=== PATIENT | male | born 1975 | race Caucasian/White ===

== ENCOUNTER 2024-01-07 09:29 | Observation (INO) ==
--- NOTE | 2024-01-07 09:51 | Emergency Department Note ---
History of Present Illness General Chief complaint: Leg Injury/Pain Stated complaint: RIGHT THIGH/LEG PAIN Time Seen by Provider: 01/07/24 09:31 History of Present Illness Maximum Pain Intensity: 7 This is a 48-year-old male with a history of lymphoma and leukemia currently on therapy that presents to the emergency department via private vehicle with complaints of "right leg pain". Patient states that this past Wednesday began with right medial proximal thigh pain and that has progressed now into the right leg. He rates his current pain is a 6/10. He did take Tylenol around 2:30 AM. Patient notes chronic shortness of breath, nothing new. He denies any fevers, chills, nausea, vomiting or chest pain. No history of blood clot. No wounds. Patient does follow locally here with Dr. Bradley at the [facility]. Home Medications Medication Instructions Recorded Confirmed Type lidocaine 5 % topical patch 1 patch topical DAILY #15 ea 08/12/23 01/07/24 Rx (Lidoderm) lisinopril 10 1 tab PO PM 08/12/23 01/07/24 History mg-hydrochlorothiazide 12.5 mg tablet acyclovir 400 mg tablet 400 mg PO BID 01/07/24 01/07/24 History albuterol sulfate 90 mcg/actuation 2 puff inhalation Q6H PRN sob or 01/07/24 01/07/24 History aerosol inhaler wheezing allopurinol 300 mg tablet 300 mg PO DAILY@1200 01/07/24 01/07/24 History cyclobenzaprine 10 mg tablet 10 mg PO BID PRN Muscle Spasm 01/07/24 01/07/24 History famotidine 20 mg tablet 20 mg PO HS 01/07/24 01/07/24 History hydroxyzine pamoate 25 mg capsule 25 - 50 mg PO DAILY PRN Anxiety 01/07/24 01/07/24 History levofloxacin 500 mg tablet 500 mg PO DAILY 01/07/24 01/07/24 History sofosbuvir 400 mg-velpatasvir 100 1 tab PO DAILY 01/07/24 01/07/24 History mg tablet (Epclusa) Allergies Allergy/AdvReac Type Severity Reaction Status Date / Time petrolatum,white Allergy Unknown Swelling Verified 09/30/23 08:09 [From Vaseline] of Lip/Tongue/Throat Past Med/Surg History Problem List (Updated 01/07/24 @ 15:25 by Philip Jasmine PA-C) Acute pain of right lower extremity (Acute) NALLELY (acute kidney injury) (Acute) Acute kidney injury superimposed on chronic kidney disease Right leg DVT (Acute) HTN (hypertension) Hepatitis C recent diagnosis, to start treatment 09/28/23; [facility] CLL (chronic lymphocytic leukemia) following w/ Dr Bradley Lymphadenopathy Lumbar pain Headache (Acute) Lumbar disc herniation with radiculopathy (Chronic) L3-4 left, extraforaminal- will receive steroid injection 09/24/23 @ [facility] Medical History (Updated 01/07/24 @ 15:25 by Philip Jasmine PA-C) Nephrolithiasis hx Surgical History S/P lymph node biopsy (10/01/23) Left axillary lymph nodes x 2.Dr. Borden Hx of cystoscopy w/ ureteral stent placement H/O lithotripsy Family History Grandfather Colorectal cancer Other Lung cancer Social History Smoking Status: Current every day smoker Tobacco Type: Cigarettes packs per day: 0.5; Cigarettes Per Day: 12; Second Hand Exposure: No; Do You Dip or Chew Tobacco: No; Tobacco Cessation Education Requested by Patient: No Hx Alcohol Use: No Hx Substance Use: No Preferred Language: Tamazight Communication Ability: Effective Electronic Tech Required: No Beliefs That Will Affect Care: None marital status: Current Living Situation: Spouse current occupation: [employer] How many Children do You have: 1 Other Information That Helps Us Care for You: No Feels Safe at Home: Yes Safety Concerns: Feels Safe At This Time during the past year weight has: remained stable Assistive Devices: None Review of Systems A total of 10 systems reviewed and were otherwise negative Physical Exam Vital Signs Vital Signs - 24 hr 01/07/24 09:30 01/07/24 09:48 01/07/24 10:30 Temperature 37.5 C Temperature Source Oral Pulse Rate 96 H 96 H Pulse Rate [Right Finger] 94 H Pulse Rate from SpO2 Sensor Pulse Rhythm Regular Regular Pulse Rhythm [Right Finger] Regular Pulse Strength Normal Pulse Strength [Right Finger] Normal Respiratory Rate 20 18 20 Respiratory Effort / Characteristics Non-Labored Spontaneous Non-Labored Spontaneous Respiratory Depth Normal Normal Respiratory Pattern Regular Regular Blood Pressure 107/69 Blood Pressure [Right Arm] 110/69 Blood Pressure Mean 81 Blood Pressure Mean [Right Arm] 82 Blood Pressure Position Sitting Blood Pressure Position [Right Arm] Sitting Pulse Oximetry 97 97 97 Oxygen Delivery Method Room Air Room Air Room Air Sepsis Recent Fever Within 48 Hours No Sepsis New/Unexplained Change in Mental Status No Sepsis Action Taken by Nursing No Action Required 01/07/24 11:42 01/07/24 11:43 01/07/24 12:15 Temperature Temperature Source Pulse Rate 85 84 89 Pulse Rate [Right Finger] Pulse Rate from SpO2 Sensor 85 89 Pulse Rhythm Pulse Rhythm [Right Finger] Pulse Strength Pulse Strength [Right Finger] Respiratory Rate 17 18 Respiratory Effort / Characteristics Respiratory Depth Respiratory Pattern Blood Pressure 91/63 L Blood Pressure [Right Arm] Blood Pressure Mean 72 Blood Pressure Mean [Right Arm] Blood Pressure Position Blood Pressure Position [Right Arm] Pulse Oximetry 95 97 Oxygen Delivery Method Sepsis Recent Fever Within 48 Hours Sepsis New/Unexplained Change in Mental Status Sepsis Action Taken by Nursing VITAL SIGNS - Vital signs and nursing notes were reviewed. Stable and afebrile. GENERAL -48-year-old male appearing his stated age who is in no acute distress. Communicates well with provider and answers questions appropriately. SKIN -there is a mild erythematous hue present overlying the entire right lower extremity most pronounced distal to the right knee. Small amount of petechial presents noted to the right anterior lateral pretibial soft tissues. No wounds. No fluctuance. No crepitus. HEAD - NC/AT. EYES - Sclera anicteric. LUNGS - CTA CARDIAC - RRR ABDOMEN - Abdominal contour normal without pulsations or visible masses. BS normoactive all four quadrants. No tenderness, palpable masses, hepatosplenomegaly, or ascites noted. EXTREMITIES - No clubbing or peripheral cyanosis. Skin as above. Right medial proximal thigh region tender to palpation. Right dorsalis pedis pulse and left as well as pedis pulse within normal limits and symmetric bilaterally. +5/5 strength noted in UE/LE bilaterally. NEUROLOGIC - Cranial nerves grossly intact. Sensory intact throughout the right lower extremity without deficit PSYCH -alert, oriented and pleasant on exam. Course Administered Medications Heparin Sodium/Dextrose (Heparin Sodium/Dextrose) 25,000 units in 500 mls @ 29 mls/hr IV .[id number] EDMAR; Protocol Stop: 02/06/24 11:29 Last Admin: 01/07/24 11:41 Dose: 1,450 units/hr, 29 mls/hr Documented By: THERESA Co-signed By: DANIELLE Sodium Chloride (Nss) 1,000 mls @ 80 mls/hr IV .[id number] [facility] Stop: 02/06/24 13:59 Last Admin: 01/07/24 15:01 Dose: 80 mls/hr Documented By: DEBRA Discontinued Medications Heparin Sodium (Porcine) (Heparin Sod (Porcine) 1000 Unit/Ml) 6,000 units IV NOW ONE Stop: 01/07/24 11:24 Last Admin: 01/07/24 11:41 Dose: 6,000 units Documented By: THERESA Co-signed By: DANIELLE Heparin Sodium/Dextrose (Heparin Iv Adult Wt-Based Standard W/ Initial Bolus Protocol) 1 each IV NOW STA; Protocol Stop: 01/07/24 11:09 Last Admin: 01/07/24 11:35 Dose: 1 each Documented By: THERESA Medical Decision Making Laboratory Data 01/07/24 10:00 01/07/24 10:00 Lab Results 01/07/24 01/07/24 Range/Units 10:00 12:44 WBC 14.18 H (4.8-10.8) K/ul RBC 5.62 (4.70-6.10) M/uL Hgb 15.9 (14.0-18.0) g/dl Hct 45.8 (42.0-52.0) % MCV 81.5 (80.0-100.0) fL MCH 28.3 (25.0-34.0) pg MCHC 34.7 (32.0-36.0) g/dL RDW Std Deviation 37.2 (36.4-46.3) fL RDW Coeff of Indra 12.7 (11.5-14.5) % Plt Count 181 (130-400) K/uL MPV 9.0 L (9.4-12.4) fL Immature Gran % (Auto) 1.2 % Neut % (Auto) 68.2 % Lymph % (Auto) 14.7 % [place] % (Auto) 14.0 % Eos % (Auto) 0.8 % Baso % (Auto) 1.1 % Neut # (Auto) 9.66 H (1.40-6.50) K/uL Lymph # (Auto) 2.09 (1.20-3.40) K/uL [place] # (Auto) 1.99 H (0.11-0.59) K/uL Eos # (Auto) 0.12 (0.00-0.50) K/uL Baso # (Auto) 0.15 (0.00-0.20) K/uL Immature Gran # (Auto) 0.17 (0.01-0.20) K/uL PT 10.2 (9.0-12.0) Seconds INR 0.9 (0.9-1.1) APTT 25 (21-31) Seconds PTT Ratio 0.9 Sodium 131 L (136-145) mmol/L Potassium 3.9 (3.5-5.1) mmol/L Chloride 99 (98-107) mmol/L Carbon Dioxide 22 (21-32) mmol/L Anion Gap 10 (3-11) BUN 44 H (6-23) mg/dl Creatinine 1.96 H (0.6-1.4) mg/dl Est Cr Clr Drug Dosing 52.8 ml/min Est GFR ( Amer) 45.8 ml/min Est GFR (Non-Af Amer) 39.6 ml/min BUN/Creatinine Ratio 22.4 H (10-20) Glucose 111 H (70-99(Fasting)) mg/dl Lactate 1.7 (0.4-2.0) mmol/L Calcium 9.3 (8.6-10.3) mg/dl Total Bilirubin 0.5 (0.2-1.0) mg/dl AST 12 L (13-39) U/L ALT 8 (7-52) U/L Alkaline Phosphatase 48 (34-104) U/L Total Creatine Kinase 43 (30-223) U/L Troponin I High Sens 3.9 (0-20) pg/ml Total Protein 7.2 (6.0-8.3) gm/dl Albumin 4.1 (3.4-5.0) gm/dl Globulin 3.1 (2.5-4.0) gm/dl Albumin/Globulin Ratio 1.3 (0.9-2) Procalcitonin 0.22 (0-0.5) ng/ml Imaging Data Radiologist's Impression: Venous Doppler Study 01/07/24 09:48 ULTRASOUND RIGHT LOWER EXTREMITY VENOUS CLINICAL HISTORY: Right leg pain and swelling. COMPARISON STUDY: No priors. TECHNIQUE: Real-time, grayscale, and color Doppler sonography of the deep veins of the right lower extremity was performed from the inguinal crease to the calf. Compression and augmentation were utilized. FINDINGS: There is extensive occlusive deep venous thrombosis seen throughout the right lower extremity, which extends from the common femoral vein through the popliteal vein. This extends into the calf with occlusive deep venous thrombosis seen in the posterior tibial and peroneal veins. The greater saphenous vein and the profunda femoris vein at the junction with the common femoral vein are clear. The anterior tibial vein is patent and normally compressible. Prominent right inguinal lymph nodes are likely reactive. IMPRESSION: Extensive occlusive right lower extremity deep venous thrombosis as detailed above. ACT 112: Negative or not required by law. Electronically signed by: Merrill Verdugo M.D. 01/07/2024 10:47 AM Pulmonary Perfusion Imaging 01/07/24 12:28 NM pul perfusion HISTORY: 48 years-old Male occlusive RLE DVT COMPARISON: Duplex venous Doppler study 01/07/2024, chest CT 11/18/2023, chest radiograph 01/07/2024. TECHNIQUE: Perfusion study was obtained following the intravenous administration of 5.6 mCi technetium 99 MAA FINDINGS: Chest radiograph of same day demonstrates mild right hemidiaphragmatic elevation without large pleural effusion or airspace consolidation. No large segmental perfusion defects. IMPRESSION: Low probability for pulmonary embolus. ACT 112: Negative or not required by law. The above report was generated using voice recognition software. It may contain grammatical, syntax or spelling errors. Electronically signed by: James Nath M.D. 01/07/2024 2:46 PM [facility] Narrative Patient was seen and evaluated as above in room A12. Review was performed of nursing notes and vital signs. I did review pertinent previous visits and patient history. After obtaining a thorough history and physical examination the above work up was performed. Patient presents to us today for evaluation of right leg pain. Patient well-appearing and nontoxic on examination. Right leg is edematous. Options of care were discussed with the patient. IV access was established. Labs were drawn. Leukocytosis 14.18. No anemia. Coags are normal. Sodium 131. Evidence of NALLELY with creatinine of 1.96. Hyperglycemia 111. Pro-Luis 0.22. Lactate within normal limits. CPK within normal range at 43. Ultrasound results as above. The patient unfortunately does have extensive occlusive right lower extremity DVT. Noting the patient's comorbidities and findings today I did discuss this with the on-call vascular surgeon as well as the patient's established oncologist as timestamped and detailed below. At this time we will proceed with inpatient management. I thoroughly reviewed benefit versus risk of heparinization with the patient. No contraindications seen at this time. At this time patient is in agreement with proceeding with the IV heparin. Case discussed with hospitalist service. Please refer to further documentation regarding his stay. The patient did have borderline low normal blood pressure at 91/63. He has been resting comfortably in examination bed. There is no hypoxia. No tachycardia. He does not feel dizzy or lightheaded. There is no chest pain. Consideration was made for a CTA of the chest however at this time we will hold off noting the patient's normal O2 saturation, NALLELY, and overall good clinical appearance. At 10:57 AM: I spoke with Dr. Rangel vascular surgery noting the patient's ultrasound findings as noted above which was the extensive occlusive right lower extremity DVT. Recommendation at this time was IV heparin. At 11:06 AM I then spoke to Dr. Bradley of oncology. At this time we agree with the heparin and then can transition to Eliquis. At 11:30 AM I also spoke with the hospitalist service and we will proceed with admission at this time. Case was discussed with the attending physician. In the evaluation and treatment of this patient the following differential diagnoses were entertained: Cellulitis, DVT, among others, cerulea dolens, PE, among others. Impression & Plan Right leg DVT, NALLELY (acute kidney injury), Acute pain of right lower extremity Discharge Plan Visit Data Chief Complaint: Leg Injury/Pain Stated Complaint: RIGHT THIGH/LEG PAIN ED Provider: Jose Buckner ED Midlevel Provider: Philip Jasmine Discharge Problem: Right leg DVT, NALLELY (acute kidney injury), Acute pain of right lower extremity Patient Disposition: Admitted As Inpatient Condition: Good Discharge Instructions Interventions: ED Discharge Assessment Last Done: 01/07/24 14:04
[2024-01-07 10:22] LABS: Basophils # (auto) 0.15 K/uL (0.00-0.20); Basophils % (auto) 1.1 %; Eosinophils # (auto) 0.12 K/uL (0.00-0.50); Eosinophils % (auto) 0.8 %; Hematocrit (blood only) 45.8 % (42.0-52.0); Hemoglobin 15.9 g/dl (14.0-18.0); Immature Granulocytes # (auto) 0.17 K/uL (0.01-0.20); Immature Granulocytes % (auto) 1.2 %; Lymphocytes # (auto) 2.09 K/uL (1.20-3.40); Lymphocytes % (auto) 14.7 %; Mean Corpuscular Hemoglobin 28.3 pg (25.0-34.0); Mean Corpuscular Hgb Conc 34.7 g/dL (32.0-36.0); Mean Corpuscular Volume 81.5 fL (80.0-100.0); Monocytes # (auto) 1.99 K/uL (0.11-0.59); Neutrophils # (auto) 9.66 K/uL (1.40-6.50); Neutrophils % (auto) 68.2 %; Platelet Count 181 K/uL (130-400); RDW Coefficient of Variation 12.7 % (11.5-14.5); RDW Standard Deviation 37.2 fL (36.4-46.3); Red Blood Count 5.62 M/uL (4.70-6.10); White Blood Count 14.18 K/ul (4.8-10.8)
[2024-01-07 10:39] LABS: Albumin Globulin Ratio 1.3 (0.9-2); Albumin Level 4.1 gm/dl (3.4-5.0); BUN Creatinine Ratio 22.4 (10-20); Bilirubin,Total 0.5 mg/dl (0.2-1.0); Calcium 9.3 mg/dl (8.6-10.3); Creatinine Clr Calc Pharmacy 52.8 ml/min; Est GFR (African American) 45.8 ml/min; Est GFR (Non-African American) 39.6 ml/min; Globulin 3.1 gm/dl (2.5-4.0); Potassium 3.9 mmol/L (3.5-5.1); Total Protein 7.2 gm/dl (6.0-8.3)
[2024-01-07 10:41] LABS: INR 0.9 (0.9-1.1); Partial Thromboplastin Ratio 0.9; Partial Thromboplastin Time 25 Seconds (21-31); Prothrombin Time 10.2 Seconds (9.0-12.0)
--- NOTE | 2024-01-07 10:49 | Ultrasound Report ---
ULTRASOUND RIGHT LOWER EXTREMITY VENOUS CLINICAL HISTORY: Right leg pain and swelling. COMPARISON STUDY: No priors. TECHNIQUE: Real-time, grayscale, and color Doppler sonography of the deep veins of the right lower ex tremity was performed from the inguinal crease to the calf. Compression and augmentation were utilize d. FINDINGS: There is extensive occlusive deep venous thrombosis seen throughout the right lower extremi ty, which extends from the common femoral vein through the popliteal vein. This extends into the calf with occlusive deep venous thrombosis seen in the posterior tibial and peroneal veins. The greater s aphenous vein and the profunda femoris vein at the junction with the common femoral vein are clear. T he anterior tibial vein is patent and normally compressible. Prominent right inguinal lymph nodes are likely reactive. IMPRESSION: Extensive occlusive right lower extremity deep venous thrombosis as detailed above. ACT 112: Negative or not required by law. Electronically signed by: Merrill Verdugo M.D. 01/07/2024 10:47 AM
[2024-01-07] MEDS ORDERED: HEPARIN SOD (PORCINE) 1000 UNIT/ML IV ONE (11:23)
[2024-01-07] MEDS: Heparin IV Adult Wt-Based Standard w/ INITIAL Bolus Protocol IV STA (11:35)
[2024-01-07] MEDS: HEPARIN SOD (PORCINE) 1000 UNIT/ML IV ONE (11:41)
[2024-01-07] MEDS: HEPARIN SODIUM/DEXTROSE 25,000 UNITS/500 ML BAG IV SCH (11:41)
--- NOTE | 2024-01-07 11:56 | History & Physical Report ---
Date of Service January 07, 2024 Assessment & Plan (1) Right leg DVT: Plan: This is a 48-year-old male with PMH of CLL following with Dr. Bradley on third cycle of chemo at [facility], hypertension, tobacco use, chronic hepatitis C and other medical problems listed below who presents with right lower extremity pain x 3 days. RLE venous doppler with extensive occlusive right lower extremity deep venous thrombosis as detailed above Distal pulses intact ED provider discussed with Dr. Rangel of vascular surgery, starting IV heparin to be transitioned to Eliquis on discharge No CP or SOB, VSS stable although BP lower end of normal at 91/63, asymptomatic appears to have lower baseline BP 2D echo, EKG, VQ scan ordered to evaluate for R heart strain Unable to obtain CTA chest now given NALLELY (2) Acute kidney injury superimposed on chronic kidney disease: Plan: Cr 1.96 (baseline Cr ~ 1.25) Hold lisinopril-hctz Continue gentle fluids Repeat BMP tomorrow (3) CLL (chronic lymphocytic leukemia): Plan: Following with Dr. Bradley of [facility], dx at the beginning of 2023. Has completed 3 cycles of chemo per patient Unable to view notes - will request from HIM Continue ppx antiviral and Levaquin (4) Hepatitis C: Plan: Continue Epclusa for hepatitis C (started on 12/07/2023 for 12-week course), following with hepatology at [place] (5) HTN (hypertension): Plan: BP on lower end of normal. Holding lisinopril-hctz for NALLELY as above DVT Ppx: IV heparin Code status: FULL PCP: Pérez Dispo: Admitted to PCU Patient seen in collaboration with Dr. Solomon. Please see addendum. I spent a total of 75 minutes coordinating, documenting, and providing care for this patient excluding time spent in the performance of separately billed services. History of Present Illness Chief Complaint: Right leg pain Primary Care Provider: Gonzales Ortez MD This is a 48-year-old male with PMH of CLL following with Dr. Bradley on third cycle of chemo at [facility], hypertension, history of migraines, tobacco use, chronic hepatitis C and other medical problems listed below who presents with right lower extremity pain x 3 days. Dull pain started 3 days and then progressed to worsened pain, swelling and rash on RLE overnight which prompted presentation to ED. Has been more painful with ambulation starting yesterday. No lightheadedness, headache, CP, palpitations or SOB. No F/C. No N/V, abd pain, dysuria, diarrhea or constipation. Was recently started on Epclusa for hepatitis C on 12/07/2023 for 12-week course, following with hepatology at [place]. Allergies Allergy/AdvReac Type Severity Reaction Status Date / Time petrolatum,white Allergy Unknown Swelling Verified 09/30/23 08:09 [From Vaseline] of Lip/Tongue/Throat Home Medications Medication Instructions Recorded Confirmed Type lidocaine 5 % topical patch 1 patch topical DAILY #15 ea 08/12/23 01/07/24 Rx (Lidoderm) lisinopril 10 1 tab PO PM 08/12/23 01/07/24 History mg-hydrochlorothiazide 12.5 mg tablet acyclovir 400 mg tablet 400 mg PO BID 01/07/24 01/07/24 History albuterol sulfate 90 mcg/actuation 2 puff inhalation Q6H PRN sob or 01/07/24 01/07/24 History aerosol inhaler wheezing allopurinol 300 mg tablet 300 mg PO DAILY@1200 01/07/24 01/07/24 History cyclobenzaprine 10 mg tablet 10 mg PO BID PRN Muscle Spasm 01/07/24 01/07/24 History famotidine 20 mg tablet 20 mg PO HS 01/07/24 01/07/24 History hydroxyzine pamoate 25 mg capsule 25 - 50 mg PO DAILY PRN Anxiety 01/07/24 01/07/24 History levofloxacin 500 mg tablet 500 mg PO DAILY 01/07/24 01/07/24 History sofosbuvir 400 mg-velpatasvir 100 1 tab PO DAILY 01/07/24 01/07/24 History mg tablet (Epclusa) Past Med/Surg History Problem List (Updated 01/07/24 @ 15:25 by Philip Jasmine PA-C) Acute pain of right lower extremity (Acute) NALLELY (acute kidney injury) (Acute) Acute kidney injury superimposed on chronic kidney disease Right leg DVT (Acute) HTN (hypertension) Hepatitis C recent diagnosis, to start treatment 09/28/23; [facility] CLL (chronic lymphocytic leukemia) following w/ Dr Bradley Lymphadenopathy Lumbar pain Headache (Acute) Lumbar disc herniation with radiculopathy (Chronic) L3-4 left, extraforaminal- will receive steroid injection 09/24/23 @ S Medical History (Updated 01/07/24 @ 15:25 by Philip Jasmine PA-C) Nephrolithiasis hx Surgical History S/P lymph node biopsy (10/01/23) Left axillary lymph nodes x 2.Dr. Borden Hx of cystoscopy w/ ureteral stent placement H/O lithotripsy Family History Grandfather Colorectal cancer Other Lung cancer Social History Smoking Status: Current every day smoker Tobacco Type: Cigarettes packs per day: 0.5; Cigarettes Per Day: 12; Second Hand Exposure: No; Do You Dip or Chew Tobacco: No; Tobacco Cessation Education Requested by Patient: No Hx Alcohol Use: No Hx Substance Use: No Preferred Language: Citizen Of [place] Communication Ability: Effective Hop Sorter Required: No Beliefs That Will Affect Care: None marital status: Current Living Situation: Spouse current occupation: [employer] How many Children do You have: 1 Other Information That Helps Us Care for You: No Feels Safe at Home: Yes Safety Concerns: Feels Safe At This Time during the past year weight has: remained stable Assistive Devices: None Review of Systems Review of Systems: At least ten systems reviewed and negative except as noted in the HPI. Physical Exam Physical Exam: General Appearance: WD/WN, vitals as above, NAD, sitting up in bed, pleasant, conversing easily Head: normocephalic, atraumatic Eyes: normal inspection, PERRL, conjunctivae normal, anicteric sclerae ENT: external ear and nose normal, oropharynx normal Neck: normal visual inspection, trachea midline, no thyromegaly Respiratory: normal respiratory effort, lungs clear to auscultation, no wheeze, rales, rhonchi. No accessory muscle use Cardiovascular: regular rate, rhythm, no murmur, normal peripheral pulses, no BLE edema. Vessels: no JVD Chest: normal inspection of chest Abdomen/GI: normal bowel sounds, soft, nontender, no hepatosplenomegaly Extremities/Musculoskeletal: RLE TTP of calf up to popliteal region, edema noted, erythema of RLE extending over knee, extremities motor strength 5/5, DP and PT pulses 2+ Neurologic: PERRL, EOMI, accommodation nl, no face palsy, no dysarthria, CN's II-XI intact bilaterally and moves all extremities Psychiatric: A+Ox3, euthymic affect Skin: normal color, warm/dry, +petechial rash noted on RLE up to groin Results & Data Results & Data Vital Signs (Past 12 Hours) Vital Signs Temp Pulse Pulse Resp BP BP Pulse Ox 01/07/24 11:43 84 01/07/24 10:30 94 H 20 110/69 97 01/07/24 09:48 96 H 18 97 01/07/24 09:30 37.5 C 96 H 20 107/69 97 O2 Del Method 01/07/24 11:43 01/07/24 10:30 Room Air 01/07/24 09:48 Room Air 01/07/24 09:30 Room Air Laboratory Results Short CBC 01/07/24 Range/Units 10:00 WBC 14.18 H (4.8-10.8) K/ul Hgb 15.9 (14.0-18.0) g/dl Hct 45.8 (42.0-52.0) % Plt Count 181 (130-400) K/uL BMP 01/07/24 10:00 Sodium 131 L Potassium 3.9 Chloride 99 Carbon Dioxide 22 BUN 44 H Creatinine 1.96 H Glucose 111 H Calcium 9.3 Cardiac Enzymes 01/07/24 Range/Units 10:00 Total Creatine Kinase 43 (30-223) U/L Liver Function 01/07/24 Range/Units 10:00 Total Bilirubin 0.5 (0.2-1.0) mg/dl AST 12 L (13-39) U/L ALT 8 (7-52) U/L Alkaline Phosphatase 48 (34-104) U/L Albumin 4.1 (3.4-5.0) gm/dl Diagnostic Findings Venous Doppler Study 01/07/24 09:48 ULTRASOUND RIGHT LOWER EXTREMITY VENOUS CLINICAL HISTORY: Right leg pain and swelling. COMPARISON STUDY: No priors. TECHNIQUE: Real-time, grayscale, and color Doppler sonography of the deep veins of the right lower extremity was performed from the inguinal crease to the calf. Compression and augmentation were utilized. FINDINGS: There is extensive occlusive deep venous thrombosis seen throughout the right lower extremity, which extends from the common femoral vein through the popliteal vein. This extends into the calf with occlusive deep venous thrombosis seen in the posterior tibial and peroneal veins. The greater saphenous vein and the profunda femoris vein at the junction with the common femoral vein are clear. The anterior tibial vein is patent and normally compressible. Prominent right inguinal lymph nodes are likely reactive. IMPRESSION: Extensive occlusive right lower extremity deep venous thrombosis as detailed above. ACT 112: Negative or not required by law. Electronically signed by: Merrill Verdugo M.D. 01/07/2024 10:47 AM Supervising Physician Co-Signing Physician Notes 48-year-old male with PMH of hepatitis C under treatment, migraine, CLL under treatment with Dr. Bradley, tobacco use presented to the ED 01/06 with complaint of right thigh pain since 2 days, progressive in nature, followed by swelling and some redness. He does have tenderness on right thigh and right calf on exam. Swelling noted. Patient denies fever/chest pain/sore throat/cough/abdominal pain. Patient reports stable shortness of breath since August of this year with activity, has not reported any increasing shortness of breath lately. Of note, patient was diagnosed with CLL earlier this year, undergoing infusion treatment with Dr. Bradley. Also he has been increasingly less mobile since last 3 months, he smokes 10 to 12 cigarettes a day, denies alcohol and recreational drug use. Full code per discussion with patient. Advised against smoking, encouraged for increased mobility/activity. Plan of care discussed in detail with the patient and patient's mother at bedside. They voiced understanding and were agreeable to plan of care. RLE DVT +ve, rule out PE and heart strainVQ scan [CTA chest cannot be done due to acute kidney injury], troponin, EKG, echo. If right heart strain positive, consult vascular and pastry chef. Continue with heparin drip, to p.o. anticoagulation on discharge. Leukocytosis likely secondary to acute stress. procal and lactate neg. Sodium around his baseline. Creatinine elevated at 1.96, acute kidney injury noted, IV fluid. Labs in AM Watch out for hemodynamic instability, if with hemodynamic instability patient to be transferred to ICU. On exam: GENERAL: Alert and oriented x3. NAD, on RA. HEENT: No pallor, no icterus. Pupils equal, round and reactive to light. Oral mucosa moist. NECK: No JVD, no neck masses. HEART: S1 and S2 heard. Regular rate and rhythm. No murmur, no gallop. RESPIRATORY SYSTEM: Normal AP diameter. No accessory muscle use. No wheezing, no crackles. ABDOMEN: Soft, bowel sounds present, nontender, no distention. CENTRAL NERVOUS SYSTEM: No facial droop. Speech is clear. Obeys simple commands. Moves extremities. EXTREMITIES: No edema, no erythema seen. RLE swelling/erythema noted, tender RLE. Normal LLE exam. No tender LLE/no swelling LLE. I have seen and examined the patient and have discussed the case with the provider above. I agree with the assessment and plan as stated.
--- NOTE | 2024-01-07 14:47 | Nuclear Medicine Report ---
NM pul perfusion HISTORY: 48 years-old Male occlusive RLE DVT COMPARISON: Duplex venous Doppler study 01/07/2024, chest CT 11/18/2023, chest radiograph 01/07/2024. TECHNIQUE: Perfusion study was obtained following the intravenous administration of 5.6 mCi technetiu m 99 MAA FINDINGS: Chest radiograph of same day demonstrates mild right hemidiaphragmatic elevation without large pleura l effusion or airspace consolidation. No large segmental perfusion defects. IMPRESSION: Low probability for pulmonary embolus. ACT 112: Negative or not required by law. The above report was generated using voice recognition software. It may contain grammatical, syntax o r spelling errors. Electronically signed by: James Nath M.D. 01/07/2024 2:46 PM
[2024-01-07] MEDS ORDERED: hydrOXYzine HCl 25 MG TAB PO PRN (14:50)
[2024-01-07] MEDS ORDERED: ALBUTEROL HFA 8 GM INHALER INH PRN (14:50)
[2024-01-07] MEDS ORDERED: ALUMINUM/MAGNESIUM SUSP 30 ML UDC PO PRN (14:50)
[2024-01-07] MEDS ORDERED: POLYETHYLENE (MIRALAX) 17 GM PACK PO PRN (14:50)
[2024-01-07] MEDS ORDERED: CYCLOBENZAPRINE HCL 10 MG TAB PO PRN (14:50)
[2024-01-07] MEDS ORDERED: levoFLOXacin 500 MG TAB PO SCH (15:00)
[2024-01-07] MEDS: SODIUM CHLORIDE 0.9% 1,000 ML IV SCH (15:01)
[2024-01-07] MEDS: ACYCLOVIR 400 MG TAB PO SCH (15:57)
[2024-01-07] MEDS: NICOTINE 14 MG/24 HR PATCH TD SCH (15:59)
[2024-01-07] MEDS: SOFOSBUVIR/VELPATASVIR 400mg/100mg TAB PO SCH (16:30)
--- NOTE | 2024-01-07 17:15 | XRay Report ---
XR chest 1V portable CLINICAL HISTORY: baseline TECHNIQUE: Single frontal radiograph of the chest was obtained. Comparison: Comparison is made to chest radiograph 08/12/2023 FINDINGS: No lines and tubes are seen. The cardiomediastinal silhouette is normal. The lungs are clear. No evid ence of pleural effusion or pneumothorax. IMPRESSION: No acute chest disease. ACT 112: Negative or not required by law. Electronically signed by: Isaac Tao M.D. 01/07/2024 5:14 PM
[2024-01-07 18:53] LABS: ANTI-Xa, UFH(UnfractionatedHep 0.37 IU/ml (0.3-0.7)
[2024-01-07] MEDS: ACETAMINOPHEN 325 MG TAB PO PRN (19:21)
[2024-01-07] MEDS: levoFLOXacin 500 MG TAB PO SCH (20:30)
[2024-01-07] MEDS: FAMOTIDINE 20 MG TAB PO SCH (20:30)
[2024-01-08 05:56] LABS: Hematocrit (blood only) 41.7 % (42.0-52.0); Hemoglobin 14.7 g/dl (14.0-18.0); Mean Corpuscular Hemoglobin 28.5 pg (25.0-34.0); Mean Corpuscular Hgb Conc 35.3 g/dL (32.0-36.0); Mean Platelet Volume 9.2 fL (9.4-12.4); Platelet Count 160 K/uL (130-400); RDW Coefficient of Variation 12.7 % (11.5-14.5); RDW Standard Deviation 37.4 fL (36.4-46.3); Red Blood Count 5.15 M/uL (4.70-6.10); White Blood Count 8.75 K/ul (4.8-10.8)
[2024-01-08 06:13] LABS: BUN Creatinine Ratio 22.3 (10-20); Calcium 8.6 mg/dl (8.6-10.3); Creatinine Clr Calc Pharmacy 74.8 ml/min; Est GFR (African American) 69.5 ml/min; Est GFR (Non-African American) 59.9 ml/min; Potassium 4.3 mmol/L (3.5-5.1)
[2024-01-08 06:21] LABS: ANTI-Xa, UFH(UnfractionatedHep 0.33 IU/ml (0.3-0.7)
--- NOTE | 2024-01-08 07:22 | Electrocardiogram Report ---
Test Reason : Blood Pressure : / mmHG Vent. Rate : 084 BPM Atrial Rate : 084 BPM P-R Int : 142 ms QRS Dur : 094 ms QT Int : 404 ms P-R-T Axes : 066 046 045 degrees QTc Int : 477 ms Normal sinus rhythm Possible Left atrial enlargement Borderline ECG When compared with ECG of 22-SEP-2023 09:46, QT has lengthened Confirmed by Jacob Sparks ([id number]) on 01/08/2024 7:22:13 AM Referred By: Amalia Solomon Confirmed By:Rob Sparks
[2024-01-08] MEDS: LIDOCAINE 5% 1 PATCH TD SCH (08:23)
[2024-01-08] MEDS: NICOTINE 21 MG/24 HR TDSY TD SCH (08:23)
[2024-01-08] MEDS ORDERED: SOFOSBUVIR/VELPATASVIR 400mg/100mg TAB PO SCH (09:00)
[2024-01-08] MEDS: SODIUM CHLORIDE 0.9% 1,000 ML IV ONE (10:20)
[2024-01-08] MEDS: oxyCODONE/ACETAMINOPHEN 5mg/325mg TAB PO PRN (11:27)
[2024-01-08] MEDS: allopurinoL 300 MG TAB PO SCH (11:29)
--- NOTE | 2024-01-08 12:38 | Hospitalist Progress Note ---
Date of Service January 08, 2024 Assessment & Plan (1) Right leg DVT: Plan: Patient is a 48 yr male with PMH of CLL following with Dr. Bradley on third cycle of chemo at [facility], hypertension, tobacco use, chronic hepatitis C and other medical problems listed below who presents with right lower extremity pain x 3 days. Acute right leg DVT --Venous Doppler: Extensive occlusive right lower extremity deep venous thrombosis as detailed above. -- Pulmonary perfusion scan:Low probability for pulmonary embolus. ED provider discussed with Dr. Rangel of vascular surgery, starting IV heparin to be transitioned to Eliquis on discharge as per records --ECHO: Left ventricular systolic function is normal. EF 60 to 60%. Left ventricle wall motion is normal. No significant valve pathology Continue IV heparin for now Plan to transition to Eliquis as able (2) Acute kidney injury superimposed on chronic kidney disease: Plan: Baseline Cr ~ 1.25 Cr 1.96>>1.3 Hold lisinopril-hctz for now Given chronic hyponatremia, will likely discontinue HCTZ on discharge Continue IV fluids Avoid nephrotoxic agents as able Monitor renal function (3) CLL (chronic lymphocytic leukemia): Plan: Following with Dr. [facility], dx at the beginning of 2023. Has completed 3 cycles of chemo per patient Continue ppx antiviral and Levaquin Continue current manage (4) Hepatitis C: Plan: Continue Epclusa for hepatitis C (started on 12/07/2023 for 12-week course), following with hepatology at [place] (5) HTN (hypertension): Plan: BP stable currently Hold home medications due to NALLELY Monitor BP DVT Px: IV heparin Code status: FULL CODE Admission and Anticipated Discharge Date Admission Date: January 07, 2024 Subjective Patient is seen and examined at bedside Right leg pain, swelling better when compared yesterday Offers no other complaints Denies any bleeding issues while on IV heparin Also denies any chest pain, dyspnea, dizziness, nausea, vomiting, abdominal pain Review of Systems Review of Systems: All systems reviewed & are unremarkable except as noted in Subjective Physical Exam Physical Exam: Physical Exam: Vitals signs as noted above General Appearance:Moderately built and nourished, no apparent distress Head: normocephalic, Atraumatic Eyes: normal inspection, EOMI Neck: supple, Trachea midline Respiratory/Chest: Normal breath sounds, CTA, No accessory muscle use Cardiovascular: S1, S2, No murmur Abdomen/GI:Soft, Non tender, Bowel sounds present Extremities/Musculoskeletal:normal inspection, RLE edema, tender Neurologic/Psych:AAOX3, grossly no focal neurological deficits Skin: normal color, warm, +Tattoos Results & Data Results & Data Vital Signs (Past 12 Hours) Vital Signs Temp Pulse Pulse Resp BP Pulse Ox O2 Del Method 01/08/24 11:23 36.5 C 93 H 18 114/70 98 Room Air 01/08/24 08:00 85 01/08/24 07:55 36.8 C 91 H 18 123/80 96 Room Air 01/08/24 03:06 36.6 C 93 H 21 131/86 99 Room Air Laboratory Results Short CBC 01/08/24 Range/Units 05:35 WBC 8.75 (4.8-10.8) K/ul Hgb 14.7 (14.0-18.0) g/dl Hct 41.7 L (42.0-52.0) % Plt Count 160 (130-400) K/uL BMP 01/08/24 05:35 Sodium 133 L Potassium 4.3 Chloride 101 Carbon Dioxide 25 BUN 31 H Creatinine 1.39 D Glucose 98 Calcium 8.6
[2024-01-09] MEDS ORDERED: APIXABAN 5 MG TABLET PO SCH
[2024-01-09 06:35] LABS: Hematocrit (blood only) 39.3 % (42.0-52.0); Hemoglobin 13.7 g/dl (14.0-18.0); Mean Corpuscular Hgb Conc 34.9 g/dL (32.0-36.0); Mean Corpuscular Volume 80.2 fL (80.0-100.0); Mean Platelet Volume 9.1 fL (9.4-12.4); Platelet Count 176 K/uL (130-400); RDW Coefficient of Variation 12.2 % (11.5-14.5); RDW Standard Deviation 35.3 fL (36.4-46.3); White Blood Count 8.06 K/ul (4.8-10.8)
[2024-01-09 06:45] LABS: BUN Creatinine Ratio 26.1 (10-20); Calcium 8.8 mg/dl (8.6-10.3); Creatinine Clr Calc Pharmacy 94.1 ml/min; Est GFR (African American) 91.2 ml/min; Est GFR (Non-African American) 78.7 ml/min; Potassium 4.2 mmol/L (3.5-5.1)
[2024-01-09 06:47] LABS: ANTI-Xa, UFH(UnfractionatedHep 0.29 IU/ml (0.3-0.7)
[2024-01-09] MEDS: APIXABAN 5 MG TABLET PO SCH (10:43)
--- NOTE | 2024-01-09 12:31 | Hospitalist Progress Note ---
Date of Service January 09, 2024 Assessment & Plan (1) Right leg DVT: Plan: Patient is a 48 yr male with PMH of CLL following with Dr. Bradley on third cycle of chemo at [facility], hypertension, tobacco use, chronic hepatitis C and other medical problems listed below who presents with right lower extremity pain x 3 days. Acute right leg DVT --Venous Doppler: Extensive occlusive right lower extremity deep venous thrombosis as detailed above. -- Pulmonary perfusion scan:Low probability for pulmonary embolus. ED provider discussed with Dr. Rangel of vascular surgery, starting IV heparin to be transitioned to Eliquis on discharge as per records --ECHO: Left ventricular systolic function is normal. EF 60 to 60%. Left ventricle wall motion is normal. No significant valve pathology Continue IV heparin >> transition to Eliquis Prefers to be discharged home today (2) Acute kidney injury superimposed on chronic kidney disease: Plan: Baseline Cr ~ 1.25 Cr 1.96>>1.3>1.1 Hold lisinopril-hctz for now Given chronic hyponatremia, will likely discontinue HCTZ on discharge Received IV fluids Avoid nephrotoxic agents as able Monitor renal function (3) CLL (chronic lymphocytic leukemia): Plan: Following with Dr. Bradley of [facility], dx at the beginning of 2023. Has completed 3 cycles of chemo per patient Continue ppx antiviral and Levaquin Continue current manage (4) Hepatitis C: Plan: Continue Epclusa for hepatitis C (started on 12/07/2023 for 12-week course), following with hepatology at [place] (5) HTN (hypertension): Plan: BP stable Resume lisinopril as able Monitor BP DVT Px: Eliquis Code status: FULL CODE Disposition Home Admission and Anticipated Discharge Date Admission Date: January 07, 2024 Subjective Patient is seen and examined at bedside Right leg pain, swelling improving Denies any bleeding issues Denies any chest pain, dyspnea, dizziness, nausea, vomiting, abdominal pain Prefers to be discharged home today Review of Systems Review of Systems: All systems reviewed & are unremarkable except as noted in Subjective Physical Exam Physical Exam: Physical Exam: Vitals signs as noted above General Appearance:Moderately built and nourished, no apparent distress Head: normocephalic, Atraumatic Eyes: normal inspection, EOMI Neck: supple, Trachea midline Respiratory/Chest: Normal breath sounds, CTA, No accessory muscle use Cardiovascular: S1, S2, No murmur Abdomen/GI:Soft, Non tender, Bowel sounds present Extremities/Musculoskeletal:normal inspection, RLE edema, tender Neurologic/Psych:AAOX3, grossly no focal neurological deficits Skin: normal color, warm, +Tattoos Results & Data Results & Data Vital Signs (Past 12 Hours) Vital Signs Temp Pulse Resp BP Pulse Ox O2 Del Method 01/09/24 11:39 36.5 C 90 18 127/85 95 Room Air 01/09/24 07:40 36.5 C 90 18 132/92 97 Room Air 01/09/24 02:49 36.4 C L 98 H 19 112/78 98 Room Air Laboratory Results Short CBC 01/09/24 Range/Units 06:10 WBC 8.06 (4.8-10.8) K/ul Hgb 13.7 L (14.0-18.0) g/dl Hct 39.3 L (42.0-52.0) % Plt Count 176 (130-400) K/uL BMP 01/09/24 06:10 Sodium 135 L Potassium 4.2 Chloride 105 Carbon Dioxide 25 BUN 29 H Creatinine 1.11 Glucose 101 H Calcium 8.8
--- NOTE | 2024-01-09 12:36 | Discharge Summary ---
Date of Service January 09, 2024 Admission HPI Per Admitting Provider This is a 48-year-old male with PMH of CLL following with Dr. Bradley on third cycle of chemo at [facility], hypertension, history of migraines, tobacco use, chronic hepatitis C and other medical problems listed below who presents with right lower extremity pain x 3 days. Dull pain started 3 days and then progressed to worsened pain, swelling and rash on RLE overnight which prompted presentation to ED. Has been more painful with ambulation starting yesterday. No lightheadedness, headache, CP, palpitations or SOB. No F/C. No N/V, abd pain, dysuria, diarrhea or constipation. Was recently started on Epclusa for hepatitis C on 12/07/2023 for 12-week course, following with hepatology at [place]. Admission Exam Per Admitting Provider General Appearance: WD/WN, vitals as above, NAD, sitting up in bed, pleasant, conversing easily Head: normocephalic, atraumatic Eyes: normal inspection, PERRL, conjunctivae normal, anicteric sclerae ENT: external ear and nose normal, oropharynx normal Neck: normal visual inspection, trachea midline, no thyromegaly Respiratory: normal respiratory effort, lungs clear to auscultation, no wheeze, rales, rhonchi. No accessory muscle use Cardiovascular: regular rate, rhythm, no murmur, normal peripheral pulses, no BLE edema. Vessels: no JVD Chest: normal inspection of chest Abdomen/GI: normal bowel sounds, soft, nontender, no hepatosplenomegaly Extremities/Musculoskeletal: RLE TTP of calf up to popliteal region, edema noted, erythema of RLE extending over knee, extremities motor strength 5/5, DP and PT pulses 2+ Neurologic: PERRL, EOMI, accommodation nl, no face palsy, no dysarthria, CN's II-XI intact bilaterally and moves all extremities Psychiatric: A+Ox3, euthymic affect Skin: normal color, warm/dry, +petechial rash noted on RLE up to groin Principal Diagnosis Acute right leg deep vein thrombosis Acute kidney injury Hyponatremia CLL Discharge Data Allergies Allergy/AdvReac Type Severity Reaction Status Date / Time petrolatum,white Allergy Unknown Swelling Verified 09/30/23 08:09 [From Vaseline] of Lip/Tongue/Throat Consultations 01/07/24 11:33 ED Decision to Admit Stat 01/07/24 14:00 HIM [Consult Health Information Management] Stat Procedures Performed Laboratory Results WBC 8.06 K/ul (4.8-10.8) 01/09/24 06:10 RBC 4.90 M/uL (4.70-6.10) 01/09/24 06:10 Hgb 13.7 g/dl (14.0-18.0) L 01/09/24 06:10 Hct 39.3 % (42.0-52.0) L 01/09/24 06:10 MCV 80.2 fL (80.0-100.0) 01/09/24 06:10 MCH 28.0 pg (25.0-34.0) 01/09/24 06:10 MCHC 34.9 g/dL (32.0-36.0) 01/09/24 06:10 RDW Std Deviation 35.3 fL (36.4-46.3) L 01/09/24 06:10 RDW Coeff of Indra 12.2 % (11.5-14.5) 01/09/24 06:10 Plt Count 176 K/uL (130-400) 01/09/24 06:10 MPV 9.1 fL (9.4-12.4) L 01/09/24 06:10 Immature Gran % (Auto) 1.2 % 01/07/24 10:00 Neut % (Auto) 68.2 % 01/07/24 10:00 Lymph % (Auto) 14.7 % 01/07/24 10:00 [place] % (Auto) 14.0 % 01/07/24 10:00 Eos % (Auto) 0.8 % 01/07/24 10:00 Baso % (Auto) 1.1 % 01/07/24 10:00 Neut # (Auto) 9.66 K/uL (1.40-6.50) H 01/07/24 10:00 Lymph # (Auto) 2.09 K/uL (1.20-3.40) 01/07/24 10:00 [place] # (Auto) 1.99 K/uL (0.11-0.59) H 01/07/24 10:00 Eos # (Auto) 0.12 K/uL (0.00-0.50) 01/07/24 10:00 Baso # (Auto) 0.15 K/uL (0.00-0.20) 01/07/24 10:00 Immature Gran # (Auto) 0.17 K/uL (0.01-0.20) 01/07/24 10:00 PT 10.2 Seconds (9.0-12.0) 01/07/24 10:00 INR 0.9 (0.9-1.1) 01/07/24 10:00 APTT 25 Seconds (21-31) 01/07/24 10:00 PTT Ratio 0.9 01/07/24 10:00 Heparin Anti-Xa, Unfract 0.29 IU/ml (0.3-0.7) L 01/09/24 06:10 Sodium 135 mmol/L (136-145) L 01/09/24 06:10 Potassium 4.2 mmol/L (3.5-5.1) 01/09/24 06:10 Chloride 105 mmol/L (98-107) 01/09/24 06:10 Carbon Dioxide 25 mmol/L (21-32) 01/09/24 06:10 Anion Gap 5 (3-11) 01/09/24 06:10 BUN 29 mg/dl (6-23) H 01/09/24 06:10 Creatinine 1.11 mg/dl (0.6-1.4) 01/09/24 06:10 Est Cr Clr Drug Dosing 94.1 ml/min 01/09/24 06:10 Est GFR ( Amer) 91.2 ml/min 01/09/24 06:10 Est GFR (Non-Af Amer) 78.7 ml/min 01/09/24 06:10 BUN/Creatinine Ratio 26.1 (10-20) H 01/09/24 06:10 Glucose 101 mg/dl (70-99(Fasting)) H 01/09/24 06:10 Lactate 1.7 mmol/L (0.4-2.0) 01/07/24 10:00 Calcium 8.8 mg/dl (8.6-10.3) 01/09/24 06:10 Magnesium 2.0 mg/dl (1.7-2.4) 01/09/24 06:10 Total Bilirubin 0.5 mg/dl (0.2-1.0) 01/07/24 10:00 AST 12 U/L (13-39) L 01/07/24 10:00 ALT 8 U/L (7-52) 01/07/24 10:00 Alkaline Phosphatase 48 U/L (34-104) 01/07/24 10:00 Total Creatine Kinase 43 U/L (30-223) 01/07/24 10:00 Troponin I High Sens 3.0 pg/ml (0-20) 01/07/24 18:11 Total Protein 7.2 gm/dl (6.0-8.3) 01/07/24 10:00 Albumin 4.1 gm/dl (3.4-5.0) 01/07/24 10:00 Globulin 3.1 gm/dl (2.5-4.0) 01/07/24 10:00 Albumin/Globulin Ratio 1.3 (0.9-2) 01/07/24 10:00 Procalcitonin 0.22 ng/ml (0-0.5) 01/07/24 10:00 Impressions Venous Doppler Study 01/07/24 09:48 ULTRASOUND RIGHT LOWER EXTREMITY VENOUS CLINICAL HISTORY: Right leg pain and swelling. COMPARISON STUDY: No priors. TECHNIQUE: Real-time, grayscale, and color Doppler sonography of the deep veins of the right lower extremity was performed from the inguinal crease to the calf. Compression and augmentation were utilized. FINDINGS: There is extensive occlusive deep venous thrombosis seen throughout the right lower extremity, which extends from the common femoral vein through the popliteal vein. This extends into the calf with occlusive deep venous thrombosis seen in the posterior tibial and peroneal veins. The greater sa phenous vein and the profunda femoris vein at the junction with the common femoral vein are clear. The anterior tibial vein is patent and normally compressible. Prominent right inguinal lymph nodes are likely reactive. IMPRESSION: Extensive occlusive right lower extremity deep venous thrombosis as detailed above. ACT 112: Negative or not required by law. Electronically signed by: Merirll Verdugo M.D. 01/07/2024 10:47 AM Pulmonary Perfusion Imaging 01/07/24 12:28 NM pul perfusion HISTORY: 48 years-old Male occlusive RLE DVT COMPARISON: Duplex venous Doppler study 01/07/2024, chest CT 11/18/2023, chest radiograph 01/07/2024. TECHNIQUE: Perfusion study was obtained following the intravenous administration of 5.6 mCi technetium 99 MAA FINDINGS: Chest radiograph of same day demonstrates mild right hemidiaphragmatic elevation without large pleural effusion or airspace consolidation. No large segmental perfusion defects. IMPRESSION: Low probability for pulmonary embolus. ACT 112: Negative or not required by law. The above report was generated using voice recognition software. It may contain grammatical, syntax or spelling errors. Electronically signed by: James Nath M.D. 01/07/2024 2:46 PM Chest X-Ray 01/07/24 13:19 XR chest 1V portable CLINICAL HISTORY: baseline TECHNIQUE: Single frontal radiograph of the chest was obtained. Comparison: Comparison is made to chest radiograph 08/12/2023 FINDINGS: No lines and tubes are seen. The cardiomediastinal silhouette is normal. The lungs are clear. No evidence of pleural effusion or pneumothorax. IMPRESSION: No acute chest disease. ACT 112: Negative or not required by law. Electronically signed by: Isaac Tao M.D. 01/07/2024 5:14 PM Ordered Studies 01/07/24 09:48 US venous doppler LE RT Stat Hospital Course (1) Right leg DVT: Patient is a 48 yr male with PMH of CLL following with Dr. Bradley on third cycle of chemo at [facility], hypertension, tobacco use, chronic hepatitis C and other medical problems listed below who presents with right lower extremity pain x 3 days. Acute right leg DVT --Venous Doppler: Extensive occlusive right lower extremity deep venous thro mbosis as detailed above. -- Pulmonary perfusion scan:Low probability for pulmonary embolus. ED provider discussed with Dr. Rangel of vascular surgery, starting IV heparin to be transitioned to Eliquis on discharge as per records --ECHO: Left ventricular systolic function is normal. EF 60 to 60%. Left ventricle wall motion is normal. No significant valve pathology Continue IV heparin >> transition to Eliquis Prefers to be discharged home today (2) Acute kidney injury superimposed on chronic kidney disease: Baseline Cr ~ 1.25 Cr 1.96>>1.3>1.1 Hold lisinopril-hctz for now Given chronic hyponatremia, will likely discontinue HCTZ on discharge Received IV fluids Avoid nephrotoxic agents as able Monitor renal function (3) CLL (chronic lymphocytic leukemia): Following with Dr. Bradley [facility], dx at the beginning of 2023. Has completed 3 cycles of chemo per patient Continue ppx antiviral and Levaquin Continue current manage (4) Hepatitis C: Continue Epclusa for hepatitis C (started on 12/07/2023 for 12-week course), following with hepatology at [place] (5) HTN (hypertension): BP stable Resume lisinopril as able Monitor BP DVT Px: Eliquis Code status: FULL CODE Disposition Home Total Time Total Time Spent Total Time Spent (In Minutes): 49 minutes Discharge Plan Discharge Items Patient Disposition: Home - Self-Care Reason For Visit: OCCLUSIVE RLE DVT Discharge Diagnosis: Acute right leg deep vein thrombosis Acute kidney injury Hyponatremia CLL Condition on Discharge: Good Activity: Per Instructions section Exercise/Sports: Wait until after follow-up appointment Non-emergency contact: Primary Care Provider and Oncologist Call non-emergency contact if: you have any medication questions, your symptoms worsen, your pain is concerning for you and you have a fever Follow-up/Referrals: Gonzales Ortez MD [Primary Care Provider] - Diet: Heart Healthy Addtl Attending Provider Instructions: Follow-up with your primary care physician Dr. Gonzales Ortez in 1 week Follow-up with your oncologist as advised -- Continue Eliquis 10 mg twice a day for 1 week and then take 5 mg twice a day. -- Duration of anticoagulation course with Eliquis to be determined by your oncologist. -- Get blood test (basic metabolic panel) in 1 week and follow-up with your physician for monitoring your renal function, sodium levels --Monitor your blood pressure regularly at home and discuss with your physician for further adjustment of medications as needed -- Start taking your lisinopril from 01/11/2024. Seek immediate medical attention if your symptoms reoccur or worsen Please take all medications as instructed on discharge list below. Please call if you have any questions or problems. You can reach a [facility] hospitalist on duty at [facility] 24 hours a day by calling [phone] Pending Studies at Discharge: No Stand-Alone Forms: My [facility] [employer], Smoking Cessation Medications and DC Order Prescriptions: New Eliquis 5 mg Tablet 5 mg PO UD Qty: 74 2RF Rx Instructions: Take 10mg twice a day for 1 week and then 5mg twice a day as advised oxycodone-acetaminophen [Percocet] 5-325 mg Tablet 1 tab PO Q8H PRN (Reason: pain) Qty: 10 0RF lisinopril 10 mg tablet 10 mg PO DAILY Qty: 30 0RF Rx Instructions: Start taking from 01/11/24 Continued lidocaine [Lidoderm] 5 % adhesive patch,medicated 1 patch topical DAILY Qty: 15 0RF Rx Instructions: leave on most painful area for up to 12 hrs albuterol sulfate 90 mcg/actuation HFA aerosol inhaler 2 puff INHALATION Q6H PRN (Reason: sob or wheezing) hydroxyzine pamoate 25 mg capsule 25 - 50 mg PO DAILY PRN (Reason: Anxiety) sofosbuvir-velpatasvir [Epclusa] 400-100 mg tablet 1 tab PO DAILY levofloxacin 500 mg tablet 500 mg PO DAILY acyclovir 400 mg tablet 400 mg PO BID Rx Instructions: takes at 11A and evening allopurinol 300 mg tablet 300 mg PO DAILY@1200 cyclobenzaprine 10 mg tablet 10 mg PO BID PRN (Reason: Muscle Spasm) famotidine 20 mg Tablet 20 mg PO HS Discontinued lisinopril-hydrochlorothiazide 10-12.5 mg tablet 1 tab PO PM Discharge Orders: Discharge Order (Routine); Ordered 01/09/24 Ordered By: Maxime Marie Admission Data Admit Date/Time: 01/07/24 12:51 Attending Provider: Maxime Marie Admit Provider: Amalia Solomon Primary Care Provider: Gonzales Ortez Other Providers: Amalia Solomon
== END 2024-01-09 13:18 | disposition home or self-care (01) | DRG 300 ==
LOC: ED 09:29 → 2E 12:51 → INTOOBSV 12:51 → SUATTDRO 12:51